=== PATIENT | male | born 1950 | race Two or more races ===

== ENCOUNTER 2020-02-24 16:16 | Inpatient (IN) | payer OTHER ==
[~2020-02-24] VITALS: Ht 175.3 cm; Wt 93.4 kg
[2020-04-03] MEDS ORDERED: ZESTRIL10 M1 PO (09:12)
== END 2020-04-13 10:00 | disposition home or self-care (01) | DRG 708 ==
LOC: SURH 04-10 06:00 → O/R 04-10 06:00 → SURH 04-10 07:00
PROVIDERS: ADMIT Urology; ATTEND Urology
PROC: 07BC0ZX Excision of Pelvis Lymphatic, Open Approach, Diagnostic (ICD-10-PCS; 2020-04-10)
PROC: 0VT00ZZ Resection of Prostate, Open Approach (ICD-10-PCS; principal; 2020-04-10 07:00)
DX: C61 Malignant neoplasm of prostate (principal); I10 Essential (primary) hypertension

== ENCOUNTER → 2020-05-08 | Outpatient (CLI) | payer OTHER ==
[~2020-05-08] MED LIST: ZESTRIL10 M1 PO
== END | disposition home or self-care (01) ==
LOC: SONOGRAMA 11:15
PROVIDERS: ATTEND Urology
DX: N20.0 Calculus of kidney (principal); R31.1 Benign essential microscopic hematuria

== ENCOUNTER 2020-05-11 08:39 | Outpatient (CLI) | payer OTHER | END 2020-05-11 08:47 | disposition home or self-care (01) | LOC: NUCLEAR 08:39 | PROVIDERS: ATTEND Urology | DX: I82.890 Acute embolism and thrombosis of other specified veins (principal); I87.2 Venous insufficiency (chronic) (peripheral) ==

== ENCOUNTER 2020-08-01 08:36 | Outpatient (CLI) | payer OTHER | END 2020-08-01 08:40 | disposition home or self-care (01) | LOC: LAB 08:36 | PROVIDERS: ATTEND Urology | DX: R97.20 Elevated prostate specific antigen [PSA] (principal); N40.0 Benign prostatic hyperplasia without lower urinary tract symptoms; R31.1 Benign essential microscopic hematuria ==

== ENCOUNTER 2020-08-04 14:45 | Outpatient (CLI) | payer OTHER | END 2020-08-04 15:02 | disposition home or self-care (01) | LOC: TOM 14:45 | PROVIDERS: ATTEND Urology | DX: N20.1 Calculus of ureter (principal); N40.0 Benign prostatic hyperplasia without lower urinary tract symptoms ==

== ENCOUNTER → 2020-10-17 10:06 | Outpatient (CLI) | payer OTHER | END | disposition home or self-care (01) | LOC: LAB 10:06 | PROVIDERS: ATTEND Urology | DX: R97.20 Elevated prostate specific antigen [PSA] (principal); R31.1 Benign essential microscopic hematuria ==